=== PATIENT | female | born 1975 | race Caucasian/White ===

== ENCOUNTER 2018-06-15 08:50 | Emergency (ER) | payer BC ==
[~2018-06-15] VITALS: Ht 170.2 cm; Wt 77.3 kg
[~2018-06-15 08:50] MED LIST: ZYRTEC 10MG10 MG PO
[2018-06-15] MEDS ORDERED: ADDERALL20 MG PO (08:56)
[2018-06-15] MEDS ORDERED: XANAX .25M0.25 MG/TA PO (08:57)
[2018-06-15 09:32] LABS: GRAN # 2.8 (1.4-6.5); HEMATOCRIT 38.6 % (37.0-47.0); HEMOGLOBIN 13.1 g/dl (12.5-16.0); LYMPH # 2.3 (1.2-3.4); LYMPH % 41.3 % (20.0-51.0); MEAN CELL VOLUME 89 fl (80.0-100.0); MEAN CORPUSCULAR HEMOGLOBIN 30 pg (27.0-31.0); MEAN CORPUSCULAR HGB CONC 34 g/dl (33.0-37.0); MEAN PLATELET VOLUME 10.3 fl (7.4-10.4); MONO # 0.5 (0.1-0.6); MONO % 8.5 % (1.7-9.3); PLATELET COUNT 255 K/mm3 (130-400); RED BLOOD COUNT 4.33 M/mm3 (4.10-5.30); REDCELL DISTRIBUTION WIDTH-CV 12.7 % (11.5-14.5)
[2018-06-15 09:39] LABS: ALANINE AMINOTRANSFERASE 24 U/L (9-52); ALBUMIN 4.2 gm/dL (3.5-5.0); ALKALINE PHOSPHATASE 41 U/L (50-136); ANION GAP 13 mmol/L (7-16); AST,SGOT 28 U/L (15-37); BILIRUBIN,TOTAL 0.3 mg/dL (0.0-1.0); BLOOD UREA NITROGEN 17 mg/dL (7-17); CALCIUM 9.2 mg/dL (8.4-10.2); CARBON DIOXIDE 21 mmol/L (22-30); CHLORIDE 106 mmol/L (98-107); CREATININE, serum 0.68 mg/dL (0.52-1.25); GLUCOSE 142 mg/dL (74-106); POTASSIUM 3.9 mmol/L (3.4-5.0); SODIUM 140 mmol/L (137-145); TOTAL PROTEIN 7.2 gm/dL (6.4-8.2)
[2018-06-15 09:43] LABS: C-REACTIVE PROTEIN < 0.5 mg/dL (0.0-0.9)
[2018-06-15 09:54] LABS: PROLACTIN 81.2 ng/mL (3.0-18.6)
[2018-06-15 11:22] VITALS: BP 112/65; PULSE 90; TEMP 98.5
== END 2018-06-15 11:23 | disposition home or self-care (01) ==
LOC: COL.ER 08:50
PROVIDERS: Nurse Practitioner
DX: R56.9 Unspecified convulsions (principal); F41.9 Anxiety disorder, unspecified; Z79.891 Long term (current) use of opiate analgesic
CPT/HCPCS: J2405; J2550

== ENCOUNTER 2021-01-16 09:57 | Emergency (ER) | payer BC, OTHER ==
[~2021-01-16] VITALS: Ht 167.6 cm; Wt 81.8 kg
[~2021-01-16 09:57] MED LIST changes: +ADDERALL20 MG PO; +XANAX .25M0.25 MG/TA PO
[2021-01-16 09:59] VITALS: TEMP 99.2
[2021-01-16 11:07] LABS: EOS # 0.1 (0.0-0.7); EOS % 1.3 % (0-4.0); GRAN # 3.6 (1.4-6.5); GRAN % 59.4 % (42.2-75.2); HEMATOCRIT 41.3 % (37.0-47.0); HEMOGLOBIN 13.6 g/dl (12.5-16.0); LYMPH # 1.8 (1.2-3.4); LYMPH % 30.5 % (20.0-51.0); MEAN CELL VOLUME 96 fl (80.0-100.0); MEAN CORPUSCULAR HEMOGLOBIN 32 pg (27.0-31.0); MEAN CORPUSCULAR HGB CONC 33 g/dl (33.0-37.0); MEAN PLATELET VOLUME 10.9 fl (7.4-10.4); MONO # 0.5 (0.1-0.6); MONO % 8.5 % (1.7-9.3); PLATELET COUNT 203 K/mm3 (130-400); RED BLOOD COUNT 4.31 M/mm3 (4.10-5.30); REDCELL DISTRIBUTION WIDTH-CV 12.3 % (11.5-14.5)
[2021-01-16 11:18] LABS: ALBUMIN 4.1 gm/dL (3.5-5.0); BILIRUBIN,TOTAL 0.3 mg/dL (0.0-1.0); CALCIUM 8.8 mg/dL (8.4-10.2); CREATININE, serum 0.8 (0.52-1.25); POTASSIUM 4.1 mmol/L (3.4-5.0)
[2021-01-16] MEDS ORDERED: KEPPRA 500MG500 MG PO (12:02)
[2021-01-16] MEDS ORDERED: MOTRIN 400400 MG/TAB PO (12:39)
[2021-01-16] MEDS ORDERED: ROBAXIN 50500 MG/TAB PO (12:39)
[2021-01-16 12:59] VITALS: BP 147/69; PULSE 99
== END 2021-01-16 12:57 | disposition home or self-care (01) ==
LOC: COL.ER 09:57
PROVIDERS: Emergency Medicine
DX: S01.511A Laceration without foreign body of lip, initial encounter (principal); G40.909 Epilepsy, unspecified, not intractable, without status epilepticus; F41.9 Anxiety disorder, unspecified; F90.9 Attention-deficit hyperactivity disorder, unspecified type; Z88.8 Allergy status to other drugs, medicaments and biological substances; V89.2XXA Person injured in unspecified motor-vehicle accident, traffic, initial encounter